=== PATIENT | female | born 1960 | race Caucasian/White ===

== ENCOUNTER 2018-08-07 10:00 | Day surgery (SDC) | payer OTHER ==
[~2018-08-07] VITALS: Ht 157.5 cm; Wt 71.4 kg
[~2018-08-07 10:00] MED LIST: HYDR-3240 PO; NITR100C PO; PHEN-418 PO; antiobiotic
[2018-08-07] MEDS ORDERED: SODIUM CHLORIDE 0.9% 1,000 ML IV SCH (11:08)
[2018-08-07 11:09] VITALS: BP 130/86
[2018-08-07] MEDS ORDERED: LIDOCAINE-MPF 1%, 5ML ONE ×2 (11:33→12:43)
[2018-08-07 11:38] LABS: INTERNATIONAL NORMALIZED RATIO 0.97 (0.93-1.1); PROTHROMBIN TIME 10.2 Seconds (9.6-11.5)
[2018-08-07] MEDS ORDERED: FLUMAZENIL 0.1 MG/1 ML, 5ML ONE (11:38)
[2018-08-07] MEDS ORDERED: MIDAZOLAM 1 MG/ML, 5ML ONE (11:38)
[2018-08-07] MEDS ORDERED: FENTANYL PF 100 MCG/2ML ONE (11:38)
[2018-08-07] MEDS ORDERED: NALOXONE 1 MG/ML, 2ML ONE (11:39)
== END 2018-08-07 14:35 | disposition home or self-care (01) ==
LOC: RAD 10:00
PROVIDERS: ATTEND Internal Medicine
DX: K76.0 Fatty (change of) liver, not elsewhere classified (principal); Z72.89 Other problems related to lifestyle; Z87.442 Personal history of urinary calculi; Z90.710 Acquired absence of both cervix and uterus; Z80.42 Family history of malignant neoplasm of prostate; Z80.6 Family history of leukemia
CPT/HCPCS: 36415; 47000; 76942; 85610; 88307; 99156; J2250; J3010; 99157; J2310